=== PATIENT | male | born 1995 | race Caucasian/White ===

== ENCOUNTER → 2022-08-08 08:00 | Outpatient (CLI) | payer OTHER, SELFPAY ==
--- NOTE | 2022-08-08 19:30 | DI.NM.S_ITS ---
DATE OF SERVICE: 08/08/2022 PROCEDURE PERFORMED: Exercise stress test. INDICATION: Chest pain. CARDIAC STRESS: The patient underwent exercise stress test under the supervision of an attending staff. The patient walked on Ignacio protocol for 9 minutes and 56 seconds, achieved a maximum heart rate of 190, which was 99 percent of target heart rate. Baseline blood pressure 118/80 mmHg and peak blood pressure about 160/90 mmHg. Baseline rhythm was sinus. During stress, no convincing ischemic changes seen. In recovery, the patient had some PVCs without any ventricular tachycardia. No obvious atrial fibrillation. During exercise, the patient had chest tightness, which was, on a scale of 1 to 10, 3 in intensity and got improved in recovery. GRIFFIN positive 29 percent. The patient achieved 12.8 METs of workload. CONCLUSION: 1. Exercise stress test is negative for inducible ischemia. 2. Normal hemodynamic response. 3. Achieved 12.8 METs of workload. Walked on Ignacio protocol for 9 minutes and 56 seconds. GRIFFIN positive 29 percent. 4. No significant arrhythmias other than rare PVCs in recovery. 5. The patient had chest tightness during exercise without any associated ischemic changes or arrhythmias at that time. Overall low-risk exercise stress test. Correlate clinically. The patient also had shortness of breath at peak exercise. Doug Brown - MINISTERIO/cassie/melina doc#: [id number]/job#: [id number] dd: 08/08/2022 12:45:00 dt: 08/08/2022 19:12:00 DICTATING /COPIES TO: Mayda Boyle MD COPIES MNE: [place];
== END ==
PROVIDERS: PCP Student in an Organized Health Care Education/Training Program
DX: R07.9 Chest pain, unspecified (principal); Z20.822 Contact with and (suspected) exposure to COVID-19; I49.3 Ventricular premature depolarization
CPT/HCPCS: 87635; 93017